=== PATIENT | male | born 1965 | race American Indian/Alaskan Native ===

== ENCOUNTER 2016-11-21 10:36 | Emergency (ER) | payer SELFPAY ==
[2016-11-21 11:03] VITALS: BP 170/108
--- NOTE | 2016-11-21 11:27 | Emergency Department Report ---
Entered by TERRA MUNOZ, acting as scribe for DOUGLAS HICKS NP. Chief Complaint: Extremity Injury, Lower Stated Complaint: BLOOD CLOT Time Seen by Provider: 11/21/16 11:16 - HPI History of Present Illness: Pt is non-toxic, non ill appearing, in no acute distress with c/o swelling and tingling to left knee. Patient reports PMHx of DVT in left lower thigh. Denies left knee injury/trauma. Patient reports drainage that began last night. He believes that he was bitten by an insect. Denies fever, chills, SOB, chest pain , wheezing, and cough. Stated had a recent car travel on November 03 to [place] with a total of about 3 hours. - ROS Review of Systems: Reports left knee swelling and tingling. Denies left knee injury. Denies fever and chills. Denies chest pain, SOB, coughing, and wheezing. - Exam Vital Signs: Vital Signs 11/21/16 10:57 Temperature 98.6 F Pulse Rate 70 Respiratory 16 Rate Blood Pressure 170/108 O2 Sat by Pulse 96 Oximetry Physical Exam: GENERAL: The patient is a well-developed, well-nourished female in no apparent distress. Patient is alert and acting appropriately for age. Alert and oriented 3, no apparent distress, normal gait, atraumatic. Constitutional: Non toxic appearing, NAD. Cardiovascular: Normal rate and rhythm with normal S1/S2 sounds. Respiratory: No respiratory distress. Lung sounds clear to auscultation bilaterally. Abdomen: Abdomen is non-distended, soft with no tenderness to palpation in all quadrants. Extremity: Neurovascular intact. Left knee swelling with subjective pus. No left calf tenderness. Negative Melly's test. MSE screening note: Focused history and physical exam performed. Due to findings the following was ordered: Doppler ultrasound left lower extremity area. CBC, BMP, lactic acid, PTT, INR, CK. ED Disposition for MSE Condition: Stable This documentation as recorded by the scribe,TERRA MUNOZ,accurately reflects the service I personally performed and the decisions made by ,DOUGLAS HICKS, JOHN PAUL.
[2016-11-21 11:52] LABS: Basophils % (Auto) 0.4 % (0.0-1.8); Eosinophils % (Auto) 1.2 % (0.0-4.3); Hematocrit 45.4 % (35.5-45.6); Hemoglobin 15.4 gm/dl (11.8-15.2); Mean Corpuscular HGB Conc 34 % (32-34); Mean Corpuscular Hemoglobin 32 pg (28-32); Mean Corpuscular Volume 95 fl (84-94); Platelet Count 149 K/mm3 (140-440); Red Blood Count 4.79 M/mm3 (3.65-5.03); Red Cell Distribution Width 12.7 % (13.2-15.2); White Blood Count 7.4 K/mm3 (4.5-11.0)
[2016-11-21 12:00] LABS: INR 0.98 (0.87-1.13); Partial Thromboplastin Time 26.2 Sec. (24.2-36.6)
[2016-11-21 12:15] LABS: Anion Gap 19 mmol/L; Blood Urea Nitrogen 14 mg/dL (9-20); Calcium 9.2 mg/dL (8.4-10.2); Carbon Dioxide 20 mmol/L (22-30); Chloride 102.3 mmol/L (98-107); Creatine Kinase 486 units/L (55-170); Glucose 110 mg/dL (75-100); Potassium 4.2 mmol/L (3.6-5.0); Sodium 137 mmol/L (137-145)
== END 2016-11-21 14:05 | disposition left against medical advice (07) ==
LOC: ED 10:36
DX: R20.2 Paresthesia of skin (principal); R22.42 Localized swelling, mass and lump, left lower limb; Z53.21 Procedure and treatment not carried out due to patient leaving prior to being seen by health care provider
CPT/HCPCS: 36415; 80048; 82140; 82550; 85025; 85610; 85730